=== PATIENT | male | born 1955 | race Caucasian/White ===

== ENCOUNTER 2017-11-11 19:03 | Emergency (ER) | payer BC ==
--- NOTE | 2017-11-11 19:47 | EDPHY ---
H & P Time Seen by Provider: 11/11/17 19:46 HPI/ROS: CHIEF COMPLAINT: Floaters in the right eye HISTORY OF PRESENT ILLNESS: The patient noticed today at 2:00 p.m. and meeting some feeling of foreign object in the right side of his visual field. He felt like it was like "loopy strings "which were "dark green "and only in the right side of the visual field of his right eye. They went away and then reoccurred and worse associated later with some flashing on the right side of his lateral eye. He denies any decrease in his vision or headache or dizziness or weakness or numbness in extremities. He does not have a documented history of hypertension. When he closes his left eye or covers it with his hand the symptoms are present when he covers his right eye symptoms go away. REVIEW OF SYSTEMS: Eye: HPI ENT: no sore throat Cardiac: no chest pain or syncope Pulmonary: no cough or SOB Abdomen: no vomiting, diarrhea, abdominal pain Musculoskeletal: no back pain or neck pain Skin: no rash Neuro: no headache Constitutional: no fever : no urinary symptoms A comprehensive 10 point review of systems is otherwise negative aside from elements mentioned in the history of present illness. PAST MEDICAL HISTORY: Negative Social history: Patient is here with his General Appearance: Alert and conversant, cooperative. Eyes: No scleral icterus. Extraocular motion intact. Pupils 3 mm reactive. Visual jo intact to confrontation. He does not have evidence of papilledema on funduscopic exam on the right side. No proptosis. Lids lashes are normal and sclera and conjunctiva are normal. No drainage from the right eye. No hyphema either side. ENT, Mouth: Normal mucous membranes. Respiratory: Normal respiratory effort, breath sounds equal, lungs are clear to auscultation. Cardiovascular: Regular rate and rhythm. Gastrointestinal: Abdomen is soft and non tender. Neurological: Alert, face symmetric, normal motor and sensory in extremities. Normal [id number] bilaterally and no pronator drift, speech is fluent, no ataxia. Skin: Warm and dry, no rashes. Musculoskeletal: No peripheral edema. Psychiatric: Not agitated. Emergency Department course/MDM: Visual acuity noted as 20/20 but the patient's initial blood pressure is 212/ 147. Subsequent blood pressures or 209/140, 199/135, 216/131. Discussed with Dr. Orozco [facility] Medicine recommends IV labetalol, admission for blood pressure control and further evaluation. 2015: Discussed with [facility], could be PRESS in the differential, per Dr. Noland. Recommends noncontrast head CT and admission for IV medications for blood pressure reduction. 2031: Discussed in detail with opthalmology Dr. Bauman at this time, possible vitreous detachment. He recommends no action tonight, does not consider likely that the patient's vision is imminently threatened. Will consult tomorrow AM while patient admitted. 2120: Negative head CT per Dr. Dinero also personally interpreted. Results reviewed with the patient at this time, including my discussion with Ophthalmology who will see him in the hospital tomorrow and specifically stated to me that they did not feel that it was emergent they evaluate him tonight given his clinical picture. 2123: 193/125, additional 20 mg IV labetalol. Results and plan discussed. Smoking Status: Never smoked Constitutional: Initial Vital Signs Temperature (C) 36.7 C 11/11/17 19:12 Heart Rate 104 H 11/11/17 19:12 Respiratory Rate 20 11/11/17 19:12 Blood Pressure 212/147 H 11/11/17 19:12 O2 Sat (%) 98 11/11/17 19:12 O2 Delivery Mode Room Air Allergies/Adverse Reactions: erythromycin base Allergy (Verified 11/11/17 19:12) Home Medications: Medication Instructions Recorded NK [No Known Home Meds] 11/11/17 Medical Decision Making - Diagnostics EKG Interpretation: 12-lead EKG interpreted by me; official reading is in trace master. My interpretation is sinus tachycardia rate [address] flattening. Differential Diagnosis: Differential considered for flashers including but not limited to hypertensive encephalopathy, ischemic stroke, intracranial bleed, vitreous detachment, retinal detachment. Consult/Admit Bed Type: [facility] 2040 Critical Care Time: Critical care time spent by me, Dr. Hernandez, exclusively with the care of this patient was 35 minutes, exclusive of PA or HUMAN RESOURCES SERVICES SPECIALIST time and exclusive of separate procedures. The organ system at risk was cardiovascular and I ordered IV labetalol multiple doses, multiple diagnostic studies, discussion with hospitalist and Neurology and Ophthalmology consultants to attempt to stabilize the patient. - Data Points Laboratory Results: Laboratory Results 11/11/17 20:15 11/11/17 20:15 11/11/17 11/11/17 20:15 20:15 WBC 6.50 10^3/uL 10^3/uL (3.80-9.50) RBC 5.25 10^6/uL 10^6/uL (4.40-6.38) Hgb 16.8 g/dL g/dL (13.7-17.5) Hct 47.6 % % (40.0-51.0) MCV 90.7 fL fL (81.5-99.8) MCH 32.0 pg pg (27.9-34.1) MCHC 35.3 g/dL g/dL (32.4-36.7) RDW 12.9 % % (11.5-15.2) Plt Count 245 10^3/uL 10^3/uL (150-400) MPV 10.5 fL fL (8.7-11.7) Neut % (Auto) 58.6 % % (39.3-74.2) Lymph % (Auto) 29.5 % % (15.0-45.0) [place] % (Auto) 8.0 % % (4.5-13.0) Eos % (Auto) 2.6 % % (0.6-7.6) Baso % (Auto) 1.1 % % (0.3-1.7) Nucleat RBC Rel Count 0.0 % % (0.0-0.2) Absolute Neuts (auto) 3.81 10^3/uL 10^3/uL (1.70-6.50) Absolute Lymphs (auto) 1.92 10^3/uL 10^3/uL (1.00-3.00) Absolute Monos (auto) 0.52 10^3/uL 10^3/uL (0.30-0.80) Absolute Eos (auto) 0.17 10^3/uL 10^3/uL (0.03-0.40) Absolute Basos (auto) 0.07 10^3/uL 10^3/uL (0.02-0.10) Absolute Nucleated RBC 0.00 10^3/uL 10^3/uL (0-0.01) Immature Gran % 0.2 % % (0.0-1.1) Immature Gran # 0.01 10^3/uL 10^3/uL (0.00-0.10) Sodium 143 mEq/L mEq/L (135-145) Potassium 3.4 mEq/L L mEq/L (3.5-5.2) Chloride 101 mEq/L mEq/L (97-110) Carbon Dioxide 23 mEq/l mEq/l (22-31) Anion Gap 19 mEq/L H mEq/L (8-16) BUN 9 mg/dL mg/dL (7-23) Creatinine 0.9 mg/dL mg/dL (0.7-1.3) Estimated GFR > 60 Glucose 113 mg/dL H mg/dL (70-100) Calcium 9.6 mg/dL mg/dL (8.5-10.4) Troponin I < 0.012 ng/mL ng/mL (0.000-0.034) Medications Given: Amlodipine Besylate (Norvasc) 5 mg PO DAILY TRINO Stop: 05/10/18 21:59 Last Admin: 11/11/17 22:33 Dose: 5 mg Discontinued Medications Labetalol HCl (Trandate Injection) 20 mg IVP EDNOW ONE Stop: 11/11/17 20:18 Last Admin: 11/11/17 20:25 Dose: 20 mg Labetalol HCl (Trandate Injection) 20 mg IVP EDNOW ONE Stop: 11/11/17 21:25 Last Admin: 11/11/17 21:33 Dose: 20 mg Potassium Chloride (Klor-Con) 40 meq PO ONCE ONE Stop: 11/11/17 22:00 Last Admin: 11/11/17 22:13 Dose: 40 meq Departure - Departure Disposition: [facility] Clinical Impression: Vitreous detachment of right eye Hypertension Qualifiers: Hypertension type: unspecified Qualified Code(s): I10 - Essential (primary) hypertension Condition: Good
[2017-11-11] MEDS ORDERED: LABETALOL HCL 5 MG/ML 20 ML MDV IVP ONE ×2 (20:17→21:24)
--- NOTE | 2017-11-11 20:21 | CPEKG ---
Heart Rate: 100 RR Interval: 600 P-R Interval: 144 QRSD Interval: 86 QT Interval: 360 QTC Interval: 465 P [place]: 63 QRS [place]: 12 T Wave [place]: 45 EKG Severity - BORDERLINE ECG - EKG Impression: SINUS TACHYCARDIA EKG Impression: BORDERLINE ST DEPRESSION, ANTEROLATERAL LEADS Electronically Signed By: Oneil Hernandez 11-Nov-2017 20:23:44
[2017-11-11 20:23] LABS: PLATELET COUNT 245 10^3/uL (150-400)
[2017-11-11] MEDS ORDERED: ACETAMINOPHEN 325 MG TAB PO PRN (21:56)
[2017-11-11] MEDS ORDERED: ONDANSETRON DISINTEGRATING 4 MG TAB PO PRN (21:56)
[2017-11-11] MEDS ORDERED: ONDANSETRON 4 MG/2 ML VIAL IVP PRN (21:56)
[2017-11-11] MEDS ORDERED: POTASSIUM CL 20 MEQ TAB PO ONE (21:59)
[2017-11-11] MEDS: amLODIPine BESYLATE 5 MG TAB PO SCH (22:33)
--- NOTE | 2017-11-11 22:33 | GHP ---
[f rep st] HISTORY AND PHYSICAL DATE OF ADMISSION: 11/11/2017 CHIEF COMPLAINT: Floaters in the right eye. HISTORY OF PRESENT ILLNESS: This is a 62-year-old male who does have a previous history of hypertens ion that usually controls with lifestyle changes, but has not really measured his blood pressure in s ome time. He presents to the emergency department with a 1-day history of floaters in the right eye which look like strings that are dark green on the right side of his visual field. They went away an d they came back. He has lots of them now. He has not had this before. He does not have any chest pain or shortness of breath. His blood pressures were over 200 systolic i n the emergency department and the patient is being admitted now. He denies any headache. No focal weakness. No confusion. REVIEW OF SYSTEMS: A 10-point review of systems was obtained and is otherwise negative. PAST MEDICAL HISTORY: Elevated blood pressure but no formal diagnosis of hypertension. MEDICATIONS: None. SOCIAL HISTORY: He has had a pretty stressful year; his father a few months ago and he has [employer] his job. No alcohol or smoking. FAMILY HISTORY: Positive for hypertension. PHYSICAL EXAM: VITAL SIGNS: Afebrile. Blood pressure was as high as 212/147, it has come down with 40 mg of labetalol to 177/117. Heart rate is 78, oxygen saturation 97% on room air. GENERAL: Amanda ent is well-developed, in no apparent distress. HEENT: Nonicteric sclerae. Extraocular muscles are intact. Moist mucous membranes. NECK: Supple. No thyromegaly. LUNGS: Good effort. Clear to au scultation bilaterally. CARDIOVASCULAR: Regular rate and rhythm. No murmurs, gallops. ABDOMEN: P ositive bowel sounds. Soft, nontender, nondistended. No hepatosplenomegaly. EXTREMITIES: No clubb ing, cyanosis, or edema. SKIN: Without rash. Warm, dry, and intact. NEUROLOGIC: Alert and orient ed x3. 5/5 strength in all 4 extremities equally. PSYCH: Normal affect. LABS: CBC is normal. Chemistry is normal. Potassium is a little bit low. IMAGING: Head CT did not show any abnormalities. EKG personally reviewed and interpreted. Sinus tachycardia with some repolarization abnormalities. ASSESSMENT: This is a 62-year-old male presenting with uncontrolled hypertension and possible early retinal detachment or vitreous hemorrhage. PLAN: 1. Hypertension. The patient's blood pressure has lowered to a little bit less dangerous level. We do want to lower his blood pressure slowly. I think the goal systolic blood pressure in the 160s to 180s is probably reasonable. To that end, I have given him a dose of Norvasc tonight and if he tole rates this well with not too much lowering of his blood pressure will be increase to maybe 10 mg edith rrow. He can probably be discharged on that with close followup with primary care. 2. Visual floaters. Ophthalmology was consulted and will see him in the morning. /[id number]/MODL
[2017-11-12 08:09] VITALS: RESP 16; TEMP 98.4
[2017-11-12] MEDS: amLODIPine BESYLATE 5 MG TAB PO SCH (09:26)
[2017-11-12 10:37] VITALS: BP 159/99; PULSE 67; O2SAT 97
--- NOTE | 2017-11-12 11:10 | GDS ---
[f rep st] DISCHARGE SUMMARY SERVICE: [facility] hospitalist. CONSULTATIONS: None. PROCEDURES: EKG, head CT. H AND P: Please see previously dictated note by Dr. Orozco. ADMISSION DIAGNOSIS: Hypertensive emergency. DISCHARGE DIAGNOSIS: Hypertensive emergency, resolved. HOSPITAL COURSE: The patient came into the emergency department yesterday after having a blood pressure checked at home and at an urgent care that was greater than 200 systolic. He had also been noticing some visual changes, including dark green spots and had already made an appointment to see an piping design specialist for tomorrow. In the emergency department, he had a head CT, which was negative for acute hemorrhage or changes. He had a CBC, BMP and a troponin , which were all reassuring. He had an EKG. He was given IV labetalol initially and then started on oral Norvasc. Blood pressures responded nicely overnight, and at time of discharge, it was 159/99. Last most elevated one was at midnight, which was 180/117. He denied any chest pain, shortness of breath. On the day of discharge, he was still having some visual changes, and an appointment has been made with [facility] for 1:00 in their office today for a full evaluation to ensure that there is no retinal hemorrhage or vitreous detachment. He felt comfortable with discharge home and will follow up with his primary care provider, Wm Rock, within the next few days. DISCHARGE INSTRUCTIONS: He does have a home blood pressure monitor. I have instructed him on a DASH diet, and he should check out [email or web address] for further great patient information. If at any time he has increase in blood pressure, onset of chest pain or shortness of breath, focal neurological symptoms, including especially headache or further changes in vision, he should report back to the emergency department MARYJO for evaluation. Otherwise, he will follow up as above. DISCHARGE MEDICATIONS: Norvasc 5 mg, #30, with no refill. Copy requested to: Wm Rock /[id number]/MODL MTDD
== END 2017-11-12 10:33 | disposition home or self-care (01) ==
LOC: UNDOADMOB 20:18
DX: I16.1 Hypertensive emergency (principal); H43.391 Other vitreous opacities, right eye
CPT/HCPCS: 96374; J3490

== ENCOUNTER 2017-11-14 19:06 | Emergency (ER) | payer BC ==
--- NOTE | 2017-11-14 19:27 | CPEKG ---
Heart Rate: 117 RR Interval: 513 P-R Interval: 152 QRSD Interval: 90 QT Interval: 336 QTC Interval: 469 P [place]: 60 QRS [place]: 18 T Wave [place]: 45 EKG Severity - BORDERLINE ECG - EKG Impression: SINUS TACHYCARDIA EKG Impression: BORDERLINE ST DEPRESSION, LATERAL LEADS Electronically Signed By: Misael Youssef 14-Nov-2017 21:57:31
--- NOTE | 2017-11-14 19:33 | EDPHY ---
H & P Time Seen by Provider: 11/14/17 19:19 HPI/ROS: Chief complaint. High blood pressure HPI. Patient's 62-year-old male presents emergency department with high blood pressure and fast heart rate. He was 3 admitted 3 days ago for hypertension and had visual symptoms. Subsequently seen the industrial methods consultant any of the vitreous hemorrhage that the industrial methods consultant apparently felt was unrelated to his hypertension. He was started on amlodipine however it caused and shakiness. Last night he knows fast heart rate. This morning his blood pressure was over 200 systolic. He did not take is amlodipine this morning because of concern for reflex tachycardia. Today he has no headache, change in his vision, chest pain, shortness of breath. ROS Constitutional. High blood pressure Eyes. no problems with vision ENT. no sore throat, no nasal drainage Cardiovascular. no chest pain Respiratory. no shortness of breath, no cough Abdominal. no abdominal pain, no nausea/vomiting, no diarrhea . no problems urinating MS. no calf pain/swelling, no neck/back pain, no joint pain Skin. no rash Lymph. no swollen glands Neuro. no headache, no dizziness, no difficulty walking or with speech Past Medical/Surgical History: Hypertension, appendectomy Social History: Single, nonsmoker, no alcohol Smoking Status: Never smoked Physical Exam: General Appearance: Alert well-developed male mild distress vital signs show heart rate 125 an initial blood pressure 201/138 Eyes: Pupils equal and round no pallor or injection. ENT, Mouth: Mucous membranes are moist. Respiratory: There are no retractions, lungs are clear to auscultation. Cardiovascular: Regular rate and rhythm. Gastrointestinal: Abdomen is soft and nontender, no masses, bowel sounds normal. Neurological: Awake and alert, sensory and motor exams grossly normal. Skin: Warm and dry, no rashes. Musculoskeletal: Neck is supple nontender. Extremities symmetrical, full range of motion. Psychiatric: Patient is oriented X 3, there is no agitation. Constitutional: Initial Vital Signs Temperature (C) 36.6 C 11/14/17 19:13 Heart Rate 125 H 18 19:13 Respiratory Rate 16 11/14/17 19:13 Blood Pressure 201/138 H 11/14/17 19:13 O2 Sat (%) 99 11/14/17 19:13 O2 Delivery Mode Room Air Allergies/Adverse Reactions: erythromycin base Allergy (Verified 11/11/17 19:12) Home Medications: Medication Instructions Recorded amLODIPine BESYLATE [Norvasc 5 mg 5 mg PO DAILY #30 tab 11/12/17 (*)] Labetalol HCl [Trandate 200 mg (*)] 200 mg PO BID #14 tab 11/14/17 Medical Decision Making - Diagnostics EKG Interpretation: EKG interpreted by me shows sinus tachycardia normal interval in and axis. QRS is normal there is no significant ST elevation or depression. There is no arrhythmia. The rate is 117 Procedures: Patient a had good results with IV labetalol 3 days ago. He is given labetalol orally 200 mg tab ED Course/Re-evaluation: 9:00 p.m. re-evaluation. Heart rate currently is 82 and blood pressure 149/94 Patient and I discussed laboratory evaluation, treatment plan including criteria for return importance of follow-up further evaluation. He expresses understanding and agreement Differential Diagnosis: High blood pressure without evidence of end-organ failure. Tachycardia which may represent reflex tachycardia. Labetalol appears to have decreases heart rate and blood pressure. - Data Points Laboratory Results: Laboratory Results 11/14/17 19:25 11/14/17 19:25 11/14/17 11/14/17 19:25 19:25 WBC 9.29 10^3/uL 10^3/uL (3.80-9.50) RBC 5.05 10^6/uL 10^6/uL (4.40-6.38) Hgb 16.2 g/dL g/dL (13.7-17.5) Hct 46.0 % % (40.0-51.0) MCV 91.1 fL fL (81.5-99.8) MCH 32.1 pg pg (27.9-34.1) MCHC 35.2 g/dL g/dL (32.4-36.7) RDW 12.7 % % (11.5-15.2) Plt Count 237 10^3/uL 10^3/uL (150-400) MPV 10.7 fL fL (8.7-11.7) Neut % (Auto) 73.8 % % (39.3-74.2) Lymph % (Auto) 17.5 % % (15.0-45.0) [place] % (Auto) 7.1 % % (4.5-13.0) Eos % (Auto) 1.0 % % (0.6-7.6) Baso % (Auto) 0.4 % % (0.3-1.7) Nucleat RBC Rel Count 0.0 % % (0.0-0.2) Absolute Neuts (auto) 6.85 10^3/uL H 10^3/uL (1.70-6.50) Absolute Lymphs (auto) 1.63 10^3/uL 10^3/uL (1.00-3.00) Absolute Monos (auto) 0.66 10^3/uL 10^3/uL (0.30-0.80) Absolute Eos (auto) 0.09 10^3/uL 10^3/uL (0.03-0.40) Absolute Basos (auto) 0.04 10^3/uL 10^3/uL (0.02-0.10) Absolute Nucleated RBC 0.00 10^3/uL 10^3/uL (0-0.01) Immature Gran % 0.2 % % (0.0-1.1) Immature Gran # 0.02 10^3/uL 10^3/uL (0.00-0.10) Sodium 139 mEq/L mEq/L (135-145) Potassium 3.9 mEq/L mEq/L (3.5-5.2) Chloride 100 mEq/L mEq/L (97-110) Carbon Dioxide 24 mEq/l mEq/l (22-31) Anion Gap 15 mEq/L mEq/L (8-16) BUN 10 mg/dL mg/dL (7-23) Creatinine 0.9 mg/dL mg/dL (0.7-1.3) Estimated GFR > 60 Glucose 145 mg/dL H mg/dL (70-100) Calcium 9.4 mg/dL mg/dL (8.5-10.4) Troponin I < 0.012 ng/mL ng/mL (0.000-0.034) Medications Given: Discontinued Medications Sodium Chloride (Ns) 1,000 mls @ 0 mls/hr IV EDNOW ONE; Wide Open PRN Reason: Protocol Stop: 11/14/17 19:51 Last Admin: 11/14/17 20:06 Dose: Not Given Labetalol HCl (Trandate) 200 mg PO EDNOW ONE Stop: 11/14/17 20:01 Last Admin: 11/14/17 19:57 Dose: 200 mg Departure - Departure Disposition: Home, Routine, Self-Care Clinical Impression: Hypertension Condition: Good Instructions: Hypertension (ED) Additional Instructions: Start labetalol twice daily beginning tomorrow morning. Discontinue amlodipine. Return for headache, change in vision, chest discomfort, trouble breathing. Re-evaluation by your regular physician or tax examining technician next week for further modification to your blood pressure medication. Referrals: Wm Rock [Primary Care Provider] - As per Instructions Gage Aguilera MD [Medical Doctor] - As per Instructions Prescriptions: Labetalol HCl [Trandate 200 mg (*)] 200 mg PO BID #14 tab
[2017-11-14] MEDS ORDERED: NS 1,000 ML IV ONE (19:50)
[2017-11-14 19:54] LABS: PLATELET COUNT 237 10^3/uL (150-400)
[2017-11-14] MEDS ORDERED: LABETALOL HCL 200 MG TAB PO ONE (20:00)
[2017-11-14 21:34] VITALS: BP 148/92; PULSE 79; RESP 18; TEMP 98.1; O2SAT 95
== END 2017-11-14 21:38 | disposition home or self-care (01) ==
DX: I10 Essential (primary) hypertension (principal)

== ENCOUNTER → 2018-03-02 | Outpatient (CLI) | payer BC | LOC: FIMAGING 12:58 | PROVIDERS: ATTEND Nurse Practitioner Adult Health | DX: Z13.6 Encounter for screening for cardiovascular disorders (principal); I10 Essential (primary) hypertension ==